=== PATIENT | male | born 1995 | race Hispanic/Latino ===

== ENCOUNTER 2019-08-11 11:05 | Outpatient (RCR) | payer MEDICARE | END 2019-08-26 | LOC: WCC 11:05 | PROVIDERS: ATTEND Internal Medicine Infectious Disease | DX: S31.102A Unspecified open wound of abdominal wall, epigastric region without penetration into peritoneal cavity, initial encounter (principal); G80.8 Other cerebral palsy; L30.4 Erythema intertrigo; Z74.01 Bed confinement status ==

== ENCOUNTER 2019-10-20 13:53 | Outpatient (RCR) | payer MEDICARE ==
[~2019-10-20 13:53] MED LIST: LIDOCAINE VISC 2% SOLN 15 ML UDC ONE
== END 2019-10-26 ==
LOC: WCC 13:53
PROVIDERS: ATTEND Internal Medicine Infectious Disease
DX: S31.102A Unspecified open wound of abdominal wall, epigastric region without penetration into peritoneal cavity, initial encounter (principal); G80.8 Other cerebral palsy; L30.4 Erythema intertrigo; Z74.01 Bed confinement status